=== PATIENT | male | born 1970 ===

== ENCOUNTER 2020-04-21 14:29 | Outpatient (REF) | payer BC, SELFPAY ==
[2020-04-24 18:08] LABS: SARS-CoV-2 RNA Undetected (Undetected); SARS-CoV-2 Specimen Source Nasopharynx
== END 2020-04-21 14:49 ==
LOC: NCHCN 14:29
PROVIDERS: PCP Family Medicine; Visit Provider Family Medicine
DX: Z20.828 Contact with and (suspected) exposure to other viral communicable diseases (principal)
CPT/HCPCS: U0003